=== PATIENT | male | born 1955 | race Two or more races ===

== ENCOUNTER 2025-04-22 08:20 | Day surgery (SDC) | payer OTHER, SELFPAY ==
--- NOTE | 2025-04-19 06:13 | EKG_ITS ---
[facility] Test Date: 2025-04-19 Pat Name: GABBIE PERKINS Department: Room: - Gender: Male Medical Legal Investigator: ENOC : 1955 Requested By: Andrzej Grissom Order Number: [id number] Reading MD: Andrzej Grissom Measurements Intervals [place] Rate: 72 P: 63 AR: 160 QRS: 32 QRSD: 93 T: 60 QT: 389 QTc: 428 Interpretive Statements SINUS RHYTHM WITH OCCASIONAL VENTRICULAR PREMATURE COMPLEXES No previous ECG available for comparison /store/S0/[id number]
[2025-04-19 09:45] VITALS: BMI 28.5
[2025-04-19 10:21] LABS: Collection Type, Urine Clean Catch; Squamous Epithelial Cell,Urine 0 /hpf (0-5)
[2025-04-19 10:38] LABS: Basophils % (Auto) 0 % (0-2.5); Eosinophils # (Auto) 0.2 Thou/mm3 (0.0-0.5); Eosinophils % (Auto) 2 % (0-10); Hematocrit 38.8 % (41.0-53.0); Hemoglobin 13.9 g/dL (13.5-16.0); Immature Granulocytes % (Auto) 0 % (0-0); Immature Granulocytes Auto 0.03 Thou/mm3 (0.00-0.00); Lymphocytes % (Auto) 29 % (10-50); Mean Corpuscular HGB Conc 35.8 g/dl (31.0-37.0); Mean Corpuscular Hemoglobin 30.7 pg (25.0-35.0); Mean Corpuscular Volume 86 fL (80-100); Monocytes # (Auto) 0.5 Thou/mm3 (0.0-0.8); Monocytes % (Auto) 6 % (0-12); Neutrophils # (Auto) 4.4 Thou/mm3 (1.8-7.7); Neutrophils % (Auto) 62 % (37-80); Nucleated Red Blood Cell % 0 /100 WBC (0); Platelet Count 295 Thou/mm3 (140-440); RDW Standard Deviation 41.4 fL (35.1-43.9); Red Blood Count 4.53 Miln/mm3 (4.50-5.90); White Blood Count 7.1 Thou/mm3 (3.8-10.6)
[2025-04-19 10:42] LABS: Bacteria,Urine 2+; Bilirubin,Urine Negative (Negative); Blood,Urine 1+ (Negative); Color,Urine Yellow (Lt Yel-Yel); Glucose, Urine Negative (Negative); Ketones,Urine Negative (Negative); Leukocyte Esterase,Urine Positive (Negative); Nitrite,Urine Positive (Negative); Protein,Urine 1+ (Neg - Trace); RBC,Urine 39 /hpf (0-3); Urobilinogen,Urine Negative mg/dL (0.0-1.0); WBC,Urine 813 /hpf (0-5)
[2025-04-19 10:55] LABS: Clarity,Urine Hazy (Clear/Hazy)
[2025-04-19 11:14] LABS: Alanine Aminotransferase 19 U/L (10-49); Albumin, Serum 4.3 gm/dL (3.4-4.8); Albumin/Globulin Ratio 1.4 (1.2-2.2); Alkaline Phosphatase 84 U/L (46-116); Anion Gap 10 (7-16); Aspartate Amino Transferase 25 U/L (0-34); BUN/Creatinine Ratio 16 Ratio (12-20); Bilirubin,Total 0.9 mg/dL (0.3-1.2); Blood Urea Nitrogen 23 mg/dL (9-23); Carbon Dioxide 22.8 mMol/L (20.0-31.0); Chloride 110 mMol/L (98-107); Creatinine (Component) 1.4 mg/dL (0.6-1.3); Estimated Creatinine Clearance 47.3 mL/min (>60); Globulin 3.1 gm/dL (2.3-3.5); Glucose 110 mg/dL (74-106); Osmolality,Calculated 289 (275-295); Sodium 143 mMol/L (136-145); Total Protein 7.4 gm/dL (5.7-8.2); eGFR 54 See Note
--- NOTE | 2025-04-21 10:38 | ESHP_ITS ---
RE: GABBIE CARTER : 1955 DATE OF ADMISSION: 04/22/2025 HISTORY OF PRESENT ILLNESS: The patient is a 70-year-old Japanese-speaking male with an elevated PSA of 5.50. The patient had a Arnold catheter in the emergency room and had enterobacter UTI. Because of his higher PSA, he is now scheduled to have cystoscopy, transrectal prostatic ultrasound, and biopsies for the prostate. PAST SURGICAL HISTORY: None. PAST MEDICAL HISTORY: He has history of urinary retention and hydronephrosis. He has history of diabetes mellitus, history of hypertension. SOCIAL HISTORY: He has 2 children. HOME MEDICATIONS: He takes; 1. Norvasc. 2. Tamsulosin. 3. Statin medication. ALLERGIES: NONE KNOWN. PHYSICAL EXAMINATION: HEENT: Normal. NECK: Supple. LUNGS: Clear. CARDIOVASCULAR: Heart sounds are normal. ABDOMEN: Soft. GENITOURINARY: Phallus is normal. Arnold catheter is in place. Testes are down in the scrotum. RECTAL: Revealed moderately enlarged prostate with mild firmness. IMPRESSION: 1. Prostatic obstruction. 2. Prostatism. 3. Urinary retention. 4. Elevated PSA of 5.50. PLAN: Cystoscopy. Transrectal prostatic ultrasound with ultrasound-guided prostatic needle biopsy. Planned procedure, risks and complications have been discussed with the patient. The patient has understood them and agreed to proceed. DT: 10:00:06 TT: 10:37:00 Ref: [id number] - TID: [id number]
--- NOTE | 2025-04-21 12:52 | SUR.PREOP ---
NS with regular tubing.
[2025-04-22] VITALS (10 sets, daily range): BP systolic 108–142; BP diastolic 65–83; PULSE 63–90; RESP 12–20; TEMP 36.2–36.4; O2SAT 96–100; BMI 28.1
--- NOTE | 2025-04-22 10:03 | SUR.PREOP ---
Patient expressed gratitude for prayer before their procedure.
--- NOTE | 2025-04-22 12:05 | SUR.PHASEI ---
pt awake, alert, able to follow commands, breathing unlabored, 16 F a[address] catheter in place and patent, report from Marija BLUM and Bk DIETZ
--- NOTE | 2025-04-22 12:05 | SUR.PHASEI ---
pt arrived to PACU via gurney awake, alert, able to follow commands, breathing unlabored, VS stable, pt denies pain, 16F alexander in place and patent
--- NOTE | 2025-04-22 12:35 | SUR.PHASEII ---
1235 Report received from Aisha Olivas RN
--- NOTE | 2025-04-22 12:35 | SUR.PHASEII ---
report to Aisha Ng RN
--- NOTE | 2025-04-22 12:35 | SUR.PHASEII ---
Report to Aisha Ng RN
--- NOTE | 2025-04-22 13:45 | SUR.PHASEII ---
1345 Patient meets discharge criteria from recovery, awake and alert, breathing unlabored, vital signs stable, denies pain, patient ate two jellos and drinking juice; denies nausea, urinary catheter drained prior to discharge, pink colored urine noted, patient and his family educated on care for leg bag at home; all receptive, patient assisted with dressing into his clothing by his , discharge instructions given to patient and patients daughter/ with the assistance of the telephone top ironer Jamie ID#[id number], daughter signed discharge instructions. Patient given all his belongings prior to discharge, transported via wheelchair and left in a private vehicle.
--- NOTE | 2025-04-22 14:42 | ESOP_ITS ---
RE: GABBIE CARTER : 1955 DATE OF OPERATION: 04/22/2025 PREOPERATIVE DIAGNOSES: Prostatic obstruction, prostatism, and elevated PSA of 5.50. POSTOPERATIVE DIAGNOSES: Prostatic obstruction, prostatism, and elevated PSA of 5.50. PROCEDURES PERFORMED: Cystoscopy, transrectal prostatic ultrasound with ultrasound-guided prostatic needle biopsy, and insertion of the Arnold catheter. ANESTHESIA: General. INDICATION: The patient is a 70-year-old gentleman with an elevated PSA of 5.5. He has a history of prostatism and prostatic obstruction. He has been in urinary retention and has been wearing a Arnold catheter. He is now scheduled to have cystoscopy and transrectal prostatic ultrasound with ultrasound-guided prostatic needle biopsy. Planned procedure, risks, and complications have been discussed with the patient and his family. They have understood them and agreed to proceed. DESCRIPTION OF PROCEDURE: After the patient was brought to the operating table under adequate general anesthesia and dorsal lithotomy position, parts were prepped and draped in the usual fashion. The patient had a Arnold catheter, which was removed prior to this procedure. Cystoscopy was then done, which revealed adequate urethral meatus, normal-appearing urethra, and moderately enlarged bilobed prostate. Residual urine was small because the patient had a Arnold catheter in place. Prior to this procedure, residual urine was about 0.5 ounce and was sent for culture and sensitivity examination. Bladder was showing no intravesical stones or tumors. There was a heavy trabeculation of the urinary bladder. There was a medium-sized bladder diverticulum on the right wall. The patient has smaller diverticula all over the bladder. Scope was withdrawn. The patient was then turned in left lateral position. Transrectal prostatic ultrasound was carried out. Biopsies were obtained from both lobes. Using ultrasound guidance, prostatic volume was measured at approximately 50 mL. Biopsies were obtained from both lobes. About 10 biopsies were obtained from both lobes. The patient was then turned in supine position and in sterile condition, a 16- Scottish Arnold catheter was then inserted at the end of the procedure into the bladder and was connected to a leg bag. The patient tolerated the entire procedure well and left the room in good condition. DT: 12:09:43 TT: 14:41:00 Ref: [id number] - TID: [id number]
== END 2025-04-22 13:45 | disposition home or self-care (01) ==
PROVIDERS: Anesthesiology; PCP Family Medicine; Referring Provider Surgery; Visit Provider Surgery
PROC: (CPT 55700; principal; 2025-04-22 12:00)
PROC: 0TJB8ZZ Inspection of Bladder, Via Natural or Artificial Opening Endoscopic (ICD-10-PCS; CPT 52000; 2025-04-22 12:00)
DX: N40.1 Benign prostatic hyperplasia with lower urinary tract symptoms (principal); R33.8 Other retention of urine; R97.20 Elevated prostate specific antigen [PSA]; N13.30 Unspecified hydronephrosis; E11.9 Type 2 diabetes mellitus without complications; I10 Essential (primary) hypertension; Z01.810 Encounter for preprocedural cardiovascular examination
CPT/HCPCS: 55700; 36415; 76942; 80053; 81001; 85025; 87077; 87086; 87186; 93005; A4217; A4314; A4649; J0131; J0694; J2405; J2704; J3010

== ENCOUNTER 2025-06-10 15:55 | Observation (INO) | payer OTHER, SELFPAY ==
[2025-06-07 10:57] VITALS: BMI 29.4
[2025-06-07 11:25] LABS: Collection Type, Urine Catheter; Squamous Epithelial Cell,Urine 0 /hpf (0-5)
[2025-06-07 11:53] LABS: Basophils # (Auto) 0.0 Thou/mm3 (0.0-0.2); Basophils % (Auto) 1 % (0-2.5); Eosinophils # (Auto) 0.1 Thou/mm3 (0.0-0.5); Eosinophils % (Auto) 1 % (0-10); Hematocrit 40.4 % (41.0-53.0); Hemoglobin 13.5 g/dL (13.5-16.0); Immature Granulocytes Auto 0.03 Thou/mm3 (0.00-0.00); Lymphocytes # (Auto) 1.7 Thou/mm3 (1.0-4.8); Lymphocytes % (Auto) 23 % (10-50); Mean Corpuscular HGB Conc 33.4 g/dl (31.0-37.0); Mean Corpuscular Hemoglobin 30.3 pg (25.0-35.0); Mean Corpuscular Volume 91 fL (80-100); Monocytes # (Auto) 0.7 Thou/mm3 (0.0-0.8); Monocytes % (Auto) 9 % (0-12); Neutrophils # (Auto) 4.7 Thou/mm3 (1.8-7.7); Neutrophils % (Auto) 66 % (37-80); Nucleated Red Blood Cell # 0.00 Thou/mm3 (0.00-0.00); Nucleated Red Blood Cell % 0 /100 WBC (0); Platelet Count 244 Thou/mm3 (140-440); RDW Standard Deviation 44.0 fL (35.1-43.9); Red Blood Count 4.45 Miln/mm3 (4.50-5.90); White Blood Count 7.2 Thou/mm3 (3.8-10.6)
[2025-06-07 12:04] LABS: Alanine Aminotransferase 18 U/L (10-49); Albumin, Serum 4.4 gm/dL (3.4-4.8); Albumin/Globulin Ratio 1.4 (1.2-2.2); Alkaline Phosphatase 79 U/L (46-116); Anion Gap 10 (7-16); Aspartate Amino Transferase 26 U/L (0-34); BUN/Creatinine Ratio 14 Ratio (12-20); Bilirubin,Total 0.5 mg/dL (0.3-1.2); Blood Urea Nitrogen 21 mg/dL (9-23); Calcium 9.2 mg/dL (8.3-10.6); Calcium (Corrected) 9.2 mg/dL (8.5-10.1); Carbon Dioxide 25.3 mMol/L (20.0-31.0); Chloride 108 mMol/L (98-107); Creatinine (Component) 1.5 mg/dL (0.6-1.3); Estimated Creatinine Clearance 43.2 mL/min (>60); Globulin 3.2 gm/dL (2.3-3.5); Glucose 91 mg/dL (74-106); Osmolality,Calculated 287 (275-295); Potassium 4.7 mMol/L (3.4-5.1); Sodium 143 mMol/L (136-145); Total Protein 7.6 gm/dL (5.7-8.2); eGFR 50 See Note
[2025-06-07 13:49] LABS: Bacteria,Urine 2+; Bilirubin,Urine Negative (Negative); Blood,Urine 2+ (Negative); Color,Urine Yellow (Lt Yel-Yel); Glucose, Urine Negative (Negative); Ketones,Urine Negative (Negative); Leukocyte Esterase,Urine Positive (Negative); Nitrite,Urine Positive (Negative); PH,Urine 6.0 (5.0-7.0); Protein,Urine 1+ (Neg - Trace); RBC,Urine 56 /hpf (0-3); Specific Gravity,Urine 1.016 (1.001-1.035); Urobilinogen,Urine Negative mg/dL (0.0-1.0); WBC,Urine 1645 /hpf (0-5)
[2025-06-07 14:09] LABS: Clarity,Urine Cloudy (Clear/Hazy)
--- NOTE | 2025-06-09 14:26 | ESHP_ITS ---
RE: RISHI CARTER : 1955 DATE OF ADMISSION: 06/09/2025 HISTORY OF PRESENT ILLNESS: Rishi is a 70-year-old gentleman with a history of urinary retention and had a Arnold catheter in. The catheter has been in for a while. It was removed and the patient again went into urinary retention. The patient had a cystoscopy done before, which revealed a moderate-sized bilobed prostate with some diverticuli on the right wall and dome. The patient had a biopsy done of his prostate, which revealed benign prostatic hyperplasia. He had a catheter in the past also. PAST SURGICAL HISTORY: None. SOCIAL HISTORY: He has 2 children. PAST MEDICAL HISTORY: He has a history of diabetes mellitus and a history of hypertension. HOME MEDICATIONS: He takes 1. Norvasc. 2. Tamsulosin. ALLERGIES: NONE KNOWN. PHYSICAL EXAMINATION: HEENT: Normal. NECK: Supple. LUNGS: Clear. CARDIOVASCULAR: Heart sounds are normal. ABDOMEN: Soft without any organomegaly. No guarding. No rigidity. EXTREMITIES: Normal. GENITOURINARY: Phallus is normal. Arnold catheter in place. Testes are down in the scrotum. Rectal examination revealed moderately large prostate. Volume is approximately 50 mL of the prostate. IMPRESSION: 1. Prostatism. 2. Prostatic obstruction. 3. Recurrent urinary retention. PLAN: Cystoscopy and transurethral resection of prostate. Planned procedure, risks, and complications have been discussed with the patient and his family. They have understood them and agreed to proceed. DT: 12:33:08 TT: 14:11:00 Ref: [id number] - TID: [id number]
--- NOTE | 2025-06-09 15:03 | SUR.PREOP ---
NS with normal tubing per Dr Pelayo.
--- NOTE | 2025-06-09 15:06 | SUR.PREOP ---
Pt's daughter notified to bring pt at 0800 tomorrow.
[2025-06-10] VITALS (22 sets, daily range): BP systolic 101–139; BP diastolic 60–78; PULSE 79–94; RESP 12–20; TEMP 36.3–36.8; O2SAT 94–100; BMI 28.7; BMI 45.3
--- NOTE | 2025-06-10 08:56 | SUR.PREOP ---
Patient expressed gratitude for prayer before their procedure.
--- NOTE | 2025-06-10 11:24 | SUR.PHASEI ---
1124: Pt. AAOx4, vitals stable, breathing unlabored, no complaint of pain, 3-way alexander catheter in place with irrigation draining clear, pink urine, no dressing in place, report received from Nathan lazaro CRNA and oLli BLUM.
[2025-06-10] MEDS: fentaNYL CIT INJ 50 mCg/ML AMP 2ML 25 MCG IVP ×2 (11:39→13:48)
--- NOTE | 2025-06-10 11:47 | SUR.PHASEI ---
1147:Report given to Aisha RN to care for pt, Pt. AAOx4, vitals stable, breathing unlabored, no complaint of pain or nausea, 3-way alexander in place draining pink urine.
--- NOTE | 2025-06-10 12:19 | SUR.PHASEI ---
1219: Report given to Aisha RN to care for pt, Pt. AAOx4, vitals stable, breathing unlabored, no complaint of pain or nausea, 3-way alexander in place draining pink urine.
--- NOTE | 2025-06-10 12:19 | SUR.PHASEI ---
1219: Report received from Aisha Olivas RN, no new changes on pt. Pt. AAOx4, vitals stable, breathing unlabored, family at bedside.
[2025-06-10] MEDS: DEXTROSE 5%-0.45% NS 1,000 ML 100 ML IV (15:44)
--- NOTE | 2025-06-10 15:50 | SUR.PHASEII ---
1550: Pt. AAOx4, vitals stable, breathing unlabored, no complaint of pain or nausea, 3-way alexander catheter in place CDI draining pink urine, pt. tolerated sips of fluids well and bites of jello well, gave report to Zeinab BLUM prior to transfer to room 356. Family aware of transfer to room, pt. transferred with all personal belongings.
[2025-06-10] MEDS: PIPER/TAZO 3.375 GM PREMIX 3.375 GM/50 ML BAG IV (17:36)
--- NOTE | 2025-06-10 17:45 | ESOP_ITS ---
RE: GABBIE CARTER : 1955 DATE OF OPERATION: 06/10/2025 PREOPERATIVE DIAGNOSES: Prostatic obstruction and recurrent urinary retention. POSTOPERATIVE DIAGNOSES: Prostatic obstruction and recurrent urinary retention with multiple bladder diverticula. PROCEDURES PERFORMED: Cystoscopy and transurethral resection of prostate. ANESTHESIA: General. INDICATION: The patient is a 70-year-old gentleman with history of recurrent urinary retention. He has a history of prostatism. He has been on medications with tamsulosin and finasteride. He had a cystoscopy done before, which revealed obstructive moderately enlarged prostate, bilobar, with multiple bladder diverticula. The patient had removal of the catheter and he went in urinary retention. This has been happening for some time. He also had urinary retention in the past. He is now scheduled to have transurethral resection of prostate in view of his above symptoms and urinary retention. Planned procedure, risks, and complications have been discussed with the patient and his daughter. They have understood them and agreed to proceed. DESCRIPTION OF PROCEDURE: After the patient was brought to the operating table under adequate general anesthesia in dorsal lithotomy position, parts were prepped and draped in the usual fashion after the indwelling Arnold catheter was removed. A 26-Maori Storz resectoscope was then introduced into the bladder. Inspection again revealed obstructive bilobed prostate. The bladder revealed multiple bladder diverticula all over, which were medium to small size. There are no intravesical stones or tumors. Transurethral resection of prostate was then carried out using Storz resectoscope, median lobe, lateral lobes on the right side and left side and anterior lobe and were resected up to the capsule. Minimal bleeding was encountered, which was controlled by using electrocoagulation. Both ureteral orifices, verumontanum, and external ureteral sphincter were prevented from any injury. The Storz resectoscope was then removed and Olympus bipolar resectoscope was then introduced and complete hemostasis was obtained with Olympus electrode. Scopes were removed. A 24-Maori three-way Arnold catheter was introduced into the bladder and was left indwelling. Irrigation of catheter revealed clear return. Catheter was then connected to a sterile bag. The patient was then transferred to the recovery room in a satisfactory condition having tolerated the entire procedure well. DT: 12:00:32 TT: 17:44:00 Ref: [id number] - TID: [id number]
[2025-06-11] VITALS: BP 91/67; PULSE 66; RESP 16; TEMP 36.1; O2SAT 98
[2025-06-11] MEDS: PIPER/TAZO 3.375 GM PREMIX 3.375 GM/50 ML BAG IV ×3 (02:03→17:22)
[2025-06-11] MEDS: DEXTROSE 5%-0.45% NS 1,000 ML 100 ML IV (03:36)
[2025-06-11 04:00] VITALS: BP 109/61; PULSE 71; RESP 16; TEMP 36.7; O2SAT 97
[2025-06-11 05:37] LABS: Basophils # (Auto) 0.0 Thou/mm3 (0.0-0.2); Basophils % (Auto) 0 % (0-2.5); Eosinophils # (Auto) 0.0 Thou/mm3 (0.0-0.5); Eosinophils % (Auto) 0 % (0-10); Hematocrit 35.7 % (41.0-53.0); Hemoglobin 12.2 g/dL (13.5-16.0); Immature Granulocytes Auto 0.10 Thou/mm3 (0.00-0.00); Lymphocytes # (Auto) 1.0 Thou/mm3 (1.0-4.8); Lymphocytes % (Auto) 6 % (10-50); Mean Corpuscular HGB Conc 34.2 g/dl (31.0-37.0); Mean Corpuscular Hemoglobin 30.7 pg (25.0-35.0); Mean Corpuscular Volume 90 fL (80-100); Monocytes # (Auto) 0.7 Thou/mm3 (0.0-0.8); Monocytes % (Auto) 4 % (0-12); Neutrophils # (Auto) 14.1 Thou/mm3 (1.8-7.7); Neutrophils % (Auto) 89 % (37-80); Nucleated Red Blood Cell # 0.00 Thou/mm3 (0.00-0.00); Nucleated Red Blood Cell % 0 /100 WBC (0); Platelet Count 217 Thou/mm3 (140-440); RDW Standard Deviation 42.5 fL (35.1-43.9); Red Blood Count 3.98 Miln/mm3 (4.50-5.90); White Blood Count 15.8 Thou/mm3 (3.8-10.6)
[2025-06-11 06:13] LABS: Albumin, Serum 3.5 gm/dL (3.4-4.8); Anion Gap 11 (7-16); BUN/Creatinine Ratio 11 Ratio (12-20); Blood Urea Nitrogen 19 mg/dL (9-23); Calcium 8.3 mg/dL (8.3-10.6); Calcium (Corrected) 8.7 mg/dL (8.5-10.1); Carbon Dioxide 20.5 mMol/L (20.0-31.0); Chloride 108 mMol/L (98-107); Creatinine (Component) 1.8 mg/dL (0.6-1.3); Estimated Creatinine Clearance 42.0 mL/min (>60); Glucose 181 mg/dL (74-106); Osmolality,Calculated 284 (275-295); Phosphorous 2.7 mg/dL (2.4-5.1); Potassium 4.1 mMol/L (3.4-5.1); Sodium 139 mMol/L (136-145); eGFR 40 See Note
[2025-06-11 08:00] VITALS: BP 118/65; PULSE 68; RESP 17; TEMP 36.2; O2SAT 93
--- NOTE | 2025-06-11 09:03 | PC.NURSE ---
received call from Dr. Grissom stating pt is able to be discharged after his afternoon dose of Zosyn. Dr. Grissom stated to remove tension from alexander and retape it to his upper thigh and stop CBI and put a plug in that port. IV can then d/c'd. Please advise patient to take Opal 5/325 1 tab Q 6HR for pain, Bactrim DS 1 tab BID for 10 days. Continue all previous home medications and drink lots of water. Telephone order read back and verified.
[2025-06-11 09:41] VITALS: PULSE 77; RESP 16; RESP 97
--- NOTE | 2025-06-11 11:20 | PC.SS ---
Patient is a 70YO male, reason for visit: TURP, BENIGN PROSTATIC HYPERPLASIA. Silk Screen Printer Helper met with patient at bedside to complete initial assessment. Patient is Macedonian speaking. Role and purpose of today?s contact was explained. Patient confirmed his demographic information. He stated his daughter, Rubi [place] [phone], is his primary medical surrogate decisionmaker. Patient reported being independent with both ADL completion and ambulation as well. [facility] PCP: Jeanna Magaña, no recent appt. Next of kin: Daughter, Rubi [place] [phone] Discharge plan: Home, family to provide transportation.
[2025-06-11 12:00] VITALS: BP 117/65; PULSE 78; RESP 18; TEMP 36.4; O2SAT 91
[2025-06-11 16:00] VITALS: BP 130/73; PULSE 87; RESP 18; TEMP 36.4; O2SAT 96
== END 2025-06-11 18:37 | disposition home or self-care (01) ==
LOC: S3NX 16:00
PROVIDERS: Anesthesiology; Admitting Provider Surgery; PCP Family Medicine; Referring Provider Surgery; Visit Provider Surgery
PROC: 0VT08ZZ Resection of Prostate, Via Natural or Artificial Opening Endoscopic (ICD-10-PCS; CPT 52601; principal; 2025-06-10 09:45)
DX: N40.1 Benign prostatic hyperplasia with lower urinary tract symptoms (principal); N32.3 Diverticulum of bladder; R33.8 Other retention of urine
CPT/HCPCS: 52601; 36415; 80053; 80069; 81001; 85025; 87077; 87086; 87186; 96365; 96366; 96375; 96376; A4217; A4649; G0378; J1100; J2371; J2405; J2543; J2704; J3010; J3490; J7042; A9270